=== PATIENT | male | born 1965 | race Caucasian/White ===

== ENCOUNTER 2018-08-20 09:04 | Emergency (ER) | payer BC ==
[~2018-08-20] VITALS: Ht 180.3 cm; Wt 100.0 kg
[~2018-08-20 09:04] MED LIST: ATOR40TA71 PO; COU7.5T PO; ESCI10TA54 PO; LEVO50TA8 PO
[2018-08-20 09:15] VITALS: BP 120/74
[2018-08-20] MEDS ORDERED: HYDR-4353 PO (09:32)
[2018-08-20] MEDS ORDERED: HYDROcodone/acetaminophen 10/325mg tab PO ONE (09:45)
== END 2018-08-20 09:45 | disposition home or self-care (01) ==
LOC: ER 09:05
DX: G89.18 Other acute postprocedural pain (principal); Z76.0 Encounter for issue of repeat prescription; I25.10 Atherosclerotic heart disease of native coronary artery without angina pectoris; Z88.8 Allergy status to other drugs, medicaments and biological substances; Z79.01 Long term (current) use of anticoagulants; Z79.899 Other long term (current) drug therapy
CPT/HCPCS: 99283

== ENCOUNTER 2019-01-27 00:51 | Outpatient (CLI) | payer BC | END 2019-01-27 23:59 | disposition home or self-care (01) | LOC: DIABETIC 00:51 | PROVIDERS: ATTEND Specialist | DX: E11.65 Type 2 diabetes mellitus with hyperglycemia (principal); Z79.899 Other long term (current) drug therapy; Z86.73 Personal history of transient ischemic attack (TIA), and cerebral infarction without residual deficits | CPT/HCPCS: G0108 ==